=== PATIENT | female | born 1985 | race Caucasian/White ===

== ENCOUNTER 2024-11-08 03:26 | Emergency (ER) | payer BC ==
[~2024-11-08] VITALS: Ht 160 cm; Wt 75.9 kg
[2024-11-08] MEDS ORDERED: SUCRALFATE 1 GM TAB PO ONE (03:45)
[2024-11-08] MEDS ORDERED: LIDOCAINE & ANTACID 35 ML BTL PO ONE (03:45)
[2024-11-08] MEDS ORDERED: ONDANSETRON 4 MG TAB ODT SL ONE (03:45)
[2024-11-08 03:50] LABS: BASOPHILS 1.2 % (0-2); EOSINOPHILS 3.3 % (0-6); HEMATOCRIT 38.8 % (35.0-50.0); HEMOGLOBIN 13.5 g/dL (12.0-18.0); LYMPHOCYTES 50.4 % (24-44); MCH 30.1 (27-36); MCHC 34.7 g/dl (30-36); MCV 86.6 fl (81-99); MONOCYTES 6.7 % (0-12); NEUTROPHILS 38.4 % (39-80); PLATELET COUNT 262 K/uL (140-440); RBC 4.49 M/ul (4.3-5.7); RDW 13.4 (10.5-15.0)
[2024-11-08] MEDS ORDERED: WELLBUTRIN XL300 MG PO (03:50)
[2024-11-08] MEDS ORDERED: VITAMIN D325 MCG PO (03:51)
[2024-11-08 03:57] LABS: BILIRUBIN, URINE NEGATIVE (negative); BLOOD/HGB, URINE MODERATE (Negative); KETONE, URINE NEGATIVE (Negative); LEUK ESTERASE, URINE NEGATIVE (negative); NITRITE, URINE NEGATIVE (negative)
[2024-11-08 04:05] LABS: ALBUMIN/GLOBULIN RATIO 1.38 (1.1-2.4); ANION GAP 16.4 (7-21); BILIRUBIN, TOTAL 0.3 mg/dL (0.2-1.0); BUN/CREATININE RATIO 17.94 (6.0-28.6); CREATININE, SERUM 0.78 mg/dL (0.55-1.02); MAGNESIUM 1.8 mg/dL (1.8-2.4); POTASSIUM 3.4 mmol/L (3.5-5.1); PROTEIN, TOTAL 6.9 g/dL (6.4-8.2)
[2024-11-08 04:10] LABS: BACTERIA, URINE 1+ /hpf (negative); CASTS, URINE NONE SEEN \\lpf; COLLECTION TYPE, URINE CLEAN CATCH; CRYSTALS, URINE NONE SEEN (0-1+); EPITHELIAL CELLS, URINE SQUAMOUS 2+ /lpf (0-1+); REFLEX CULTURE, URINE No (No)
[2024-11-08] MEDS ORDERED: CARAFATE1 GM PO (04:14)
[2024-11-08] MEDS ORDERED: MACROBID 100 M100 MG PO (04:14)
[2024-11-08] MEDS ORDERED: PROTONIX40 MG PO (04:14)
[2024-11-08 04:28] VITALS: BP 112/77
[2024-11-08] MEDS ORDERED: NITROFURANTOIN MONOHYD MACROCR 100 MG HOME.PACK PO ONE (04:30)
== END 2024-11-08 04:29 | disposition home or self-care (01) ==
LOC: ED 03:26
PROVIDERS: Family Medicine
DX: K29.70 Gastritis, unspecified, without bleeding (principal); N39.0 Urinary tract infection, site not specified; Z88.8 Allergy status to other drugs, medicaments and biological substances; Z79.899 Other long term (current) drug therapy
CPT/HCPCS: 36415; 80053; 81001; 83690; 83735; 85025; 99284; G0480